=== PATIENT | female | born 1965 | race Caucasian/White ===

== ENCOUNTER 2024-05-12 11:49 | Emergency (ER) | payer OTHER ==
[2024-05-12 12:06] VITALS: BP 109/77; PULSE 76; RESP 16; TEMP 98.6; BMI 22.4
[2024-05-12] MEDS ORDERED: ACETAMINOPHEN 325 MG TABLET (FP) ONE (12:07)
[2024-05-12] MEDS: ACETAMINOPHEN 325 MG TABLET (FP) PO ONE (12:10)
== END 2024-05-12 12:21 | disposition home or self-care (01) ==
LOC: FER 11:49
DX: S16.1XXA Strain of muscle, fascia and tendon at neck level, initial encounter (principal); M54.89 Other dorsalgia; V49.40XA Driver injured in collision with unspecified motor vehicles in traffic accident, initial encounter
CPT/HCPCS: 99283-25